=== PATIENT | female | born 1975 | race Caucasian/White ===

== ENCOUNTER 2021-07-28 15:26 | Emergency (ER) | payer SELFPAY ==
[~2021-07-28] VITALS: Ht 160 cm; Wt 112.5 kg
[2021-07-28 15:33] VITALS: BP 165/106
--- NOTE | 2021-07-28 15:45 | NUR ---
PT'S WOUND BEING SOAKED WITH WARM WATER AND BETADINE.
--- NOTE | 2021-07-28 15:45 | NUR ---
PT TAKEN TO CHAIR C
[2021-07-28] MEDS ORDERED: HYDROcodone/APAP 5/325 MG 1 TAB TAB PO ONE (16:20)
[2021-07-28] MEDS ORDERED: IBUPROFEN 600 MG TAB PO ONE (16:20)
[2021-07-28] MEDS ORDERED: BACITRACIN OINT 500 UNITS/GM PKT TP ONE (16:25)
[2021-07-28] MEDS ORDERED: LIDOCAINE MPF 1% 10 MG/ML VIAL INJ ONE (16:25)
--- NOTE | 2021-07-28 16:31 | NUR ---
X-RAY AT BEDSIDE.
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
--- NOTE | 2021-07-28 17:22 | NUR ---
PA AT BEDSIDE FOR PROCEDURE.
[2021-07-28] MEDS ORDERED: AMOXIL/CLAVULANATE 875/125 MG 1 TAB PO ONE (17:45)
[2021-07-28] MEDS ORDERED: AMOX-1230 PO (17:47)
[2021-07-28] MEDS ORDERED: IBUP-2213 PO (17:47)
[2021-07-28] MEDS ORDERED: ACET-8386 PO (17:47)
[2021-07-28 17:54] VITALS: BP 126/60
--- NOTE | 2021-07-28 18:25 | NUR ---
R POINTER FINGER DRESSED WITH NON ADHERENT GAUZE AND WRAPPED WITH 1 IN GAUZE ROLL. + CMS BEFORE AND AFTER APPLICATION.
--- NOTE | 2021-07-28 18:28 | NUR ---
Patient discharged with v/s stable. Written and verbal after care instructions FOR ANIMAL BITE AND TRAUMATIC FINGER AMPUTATION given and explained. Patient alert, oriented and verbalized understanding of instructions. Ambulatory with steady gait. All questions addressed prior to discharge. ID band removed. Patient advised to follow up with PMD. Rx of HYDROCODONE, AMOXICILLIN, AND IBUPROFEN given. Opportunity to ask questions provided and answered.
== END 2021-07-28 18:22 | disposition home or self-care (01) ==
LOC: MED 15:26
DX: S61.214A Laceration without foreign body of right ring finger without damage to nail, initial encounter (principal); Z89.021 Acquired absence of right finger(s); Z79.899 Other long term (current) drug therapy; W54.0XXA Bitten by dog, initial encounter; Y93.89 Activity, other specified; Y92.89 Other specified places as the place of occurrence of the external cause; Y99.8 Other external cause status
CPT/HCPCS: 12002; 73140; 90471; 90715; 99284; J2001; Q0092